=== PATIENT | male | born 2000 | race Native Hawaiian/Other Pacific Islander ===

== ENCOUNTER 2022-01-20 13:30 | Emergency (ER) | payer SELFPAY ==
[~2022-01-20] VITALS: Ht 167.6 cm; Wt 69.9 kg
[2022-01-20 13:43] VITALS: BP 116/69
--- NOTE | 2022-01-20 16:12 | NUR ---
UNABLE TO LOCATE PT, LWBS
== END 2022-01-20 16:12 | disposition left against medical advice (07) ==
LOC: MED 13:30 → EDBD 13:30 → MED 16:12
DX: M79.602 Pain in left arm (principal); Z53.21 Procedure and treatment not carried out due to patient leaving prior to being seen by health care provider